=== PATIENT | female | born 1980 | race Caucasian/White ===

== ENCOUNTER 2017-11-10 18:36 | Emergency (ER) | payer MEDICAID ==
[~2017-11-10] VITALS: Ht 162.6 cm; Wt 78.5 kg
[2017-11-10 18:41] VITALS: Ht 162.6 cm; Wt 78.5 kg
[2017-11-10 22:21] VITALS: BP 144/94
== END 2017-11-10 22:21 | disposition home or self-care (01) ==
LOC: ED 18:36
DX: N83.201 Unspecified ovarian cyst, right side (principal); D25.9 Leiomyoma of uterus, unspecified; R03.0 Elevated blood-pressure reading, without diagnosis of hypertension